=== PATIENT | female | born 1935 | race Caucasian/White ===

== ENCOUNTER 2019-11-19 21:16 | Inpatient (IN) ==
[2019-11-19 23:56] LABS: Adenovirus Not Detected (Not Detect); Bordetella Pertussis Not Detected (Not Detect); Chlamydophila pneumoniae Not Detected (Not Detect); Coronavirus 229E Not Detected (Not Detect); Coronavirus HKU1 Not Detected (Not Detect); Coronavirus NL63 Not Detected (Not Detect); Coronavirus OC43 Not Detected (Not Detect); Human Metapneumovirus Not Detected (Not Detect); Human Rhinovirus/Enterovirus Not Detected (Not Detect); Influenza A Subtype 2009 H1 Not Detected (Not Detect); Influenza B Not Detected (Not Detect); Mycoplasma pneumoniae Not Detected (Not Detect); Parainfluenza Virus 1 Not Detected (Not Detect); Parainfluenza Virus 2 Not Detected (Not Detect); Parainfluenza Virus 3 Not Detected (Not Detect); Parainfluenza Virus 4 Not Detected (Not Detect); Respiratory Syncytial Virus Not Detected (Not Detect)
[2019-11-20] MEDS ORDERED: Naloxone 0.4 MG/ML INJ IVP PRN (00:18)
[2019-11-20] MEDS ORDERED: *HR* Dextrose 50 % in Water (Vial) 50 ML VIAL IVP PRN ×2 (00:28→08:36)
[2019-11-20] MEDS ORDERED: Dextrose Gel 15 GM/37.5 ML TUBE PO PRN ×2 (00:28)
[2019-11-20] MEDS ORDERED: D5% in Water 1,000 ML IVC PRN (00:28)
[2019-11-20 01:13] LABS: Basophils % 0.2 %; Eosinophils # 0.2 K/mcL (0.0-0.6); Eosinophils % 1.4 %; Hemoglobin 9.5 g/dL (11.5-15.4); Immature Granulocytes % 0.9 % (0-4); Lymphocytes # 1.6 K/mcL (0.6-4.6); Lymphocytes % 10.9 %; Mean Corpuscular HGB Conc 32.8 g/dL (31.6-35.5); Mean Corpuscular Hemoglobin 31.5 pg (28.0-33.3); Monocytes # 0.4 K/mcL (0.0-1.3); Neutrophils # 11.9 K/mcL (1.6-8.9); Platelet Count 167 K/mcL (140-400); Red Blood Count 3.02 M/mcL (3.82-4.97); Red Cell Distribution Width 14.2 % (11.5-14.5); Segmented Neutrophils % 83.6 %; White Blood Count 14.2 K/mcL (4.3-11.1)
[2019-11-20 01:22] LABS: INR 1.3; Prothrombin Time 14.9 Seconds (9.4-12.1)
[2019-11-20 01:25] LABS: Activated Partial Thrombo Time 36.1 Seconds (26.0-36.0)
[2019-11-20 01:39] LABS: Magnesium 0.7 mg/dL (1.6-2.6); Troponin I 0.07 ng/mL (< 0.04)
[2019-11-20 01:40] LABS: Albumin 2.8 g/dL (3.5-5.7); Albumin/Globulin Ratio 1.2 (1.1-2.2); Bilirubin,Total 1.6 mg/dL (0.3-1.0); Calcium 5.7 mg/dL (8.6-10.3); Globulin 2.3 g/dL (2.4-3.5); Potassium 2.9 mEq/L (3.5-5.1); Total Protein 5.1 g/dL (6.4-8.9)
[2019-11-20] MEDS: Norepinephrine 4 MG/254 ML IV.SOLN IVC SCH ×2 (01:45→12:59)
[2019-11-20] MEDS ORDERED: Calcium Gluconate 1gm/50mL 1 GM/50 ML BAG IVPB PRN (02:07)
[2019-11-20] MEDS: Calcium Gluconate 1gm/50mL 1 GM/50 ML BAG IVPB SCH ×3 (02:26→03:39)
[2019-11-20] MEDS ORDERED: *HR* Dextrose 50 % in Water (Vial) 50 ML VIAL IVP ONE (02:46)
[2019-11-20] MEDS ORDERED: 0.9 % Sodium Chloride 1,000 ML IV ONE (03:07)
[2019-11-20 03:44] LABS: Thyroid Stimulating Hormone 4.536 mcIU/mL (0.340-5.600)
[2019-11-20 05:41] LABS: Potassium,Urine 12.3 mEq/L; Protein/Creatinine Ratio,Urine 1.06 mg/mg (0.00-0.20); Sodium, Urine 49.7 mEq/L
[2019-11-20] MEDS: *HR* Heparin 5,000 UNIT/ML VIAL SQ SCH ×3 (05:59→21:41)
[2019-11-20 06:33] LABS: VBG Ionized Calcium 0.99 mmol/L (1.15-1.35)
[2019-11-20 07:01] LABS: Hepatitis B Surface Antigen Nonreactive (Nonreactive)
[2019-11-20 07:29] LABS: Hepatitis B Core IgM Nonreactive (Nonreactive)
[2019-11-20 07:30] LABS: Hepatitis C Virus Antibody Nonreactive (Nonreactive)
[2019-11-20 07:31] LABS: Hepatitis A Antibody IgM Nonreactive (Nonreactive)
[2019-11-20] MEDS ORDERED: Cosyntropin 250 MCG/2 ML VIAL IVP ONE (07:32)
[2019-11-20] MEDS ORDERED: Vancomycin 1 EACH in 0.9 % Sodium Chloride 250 ML IVPB PRN (08:00)
[2019-11-20] MEDS ORDERED: Perflutren Lipid Microsphere 1.3 ML in 0.9 % Sodium Chloride 8.7 ML IVP PRN (08:12)
[2019-11-20] MEDS ORDERED: Cefepime HCl 1,000 MG in Water for inj. (sterile) 10 ML IVP SCH (09:00)
[2019-11-20] MEDS ORDERED: cefTRIAXone 1,000 MG in Water for inj. (sterile) 10 ML IVP SCH (09:00)
[2019-11-20] MEDS ORDERED: Vancomycin 1,250 MG/262.5 ML IV.SOLN IVPB ONE (09:00)
[2019-11-20 09:19] LABS: Bacteria,Urine Few per hpf (None-Few); Bilirubin,Urine Negative (Negative); Blood,Urine Small (Negative); Budding Yeast,Urine Few per hpf (None Seen); Clarity,Urine Turbid (Clear); Color,Urine Yellow (Yellow); Glucose,Urine (UA) Normal (Normal); Ketones,Urine Negative (Negative); Leukocyte Esterase,Urine Large (Negative); Nitrite,Urine Negative (Negative); Protein,Urine 30 mg/dL (Neg-Trace); Specific Gravity,Urine 1.012 (1.010-1.025); Squamous Epithelial Cell,Urine Few per hpf (None-Few); Transitional Epi Cells,Urine Few per hpf (None-Few); Urobilinogen,Urine Normal (Normal); WBC,Urine 30-50 per hpf (0-3)
[2019-11-20] MEDS: Hydrocortisone Sodium Succ 100 MG/2 ML VIAL IVP SCH ×3 (10:38→20:28)
[2019-11-20 11:15] LABS: VBG Ionized Calcium 0.98 mmol/L (1.15-1.35)
[2019-11-20 11:30] LABS: Albumin 2.8 g/dL (3.5-5.7); Albumin/Globulin Ratio 1.2 (1.1-2.2); Bilirubin,Total 1.4 mg/dL (0.3-1.0); Calcium 6.7 mg/dL (8.6-10.3); Globulin 2.4 g/dL (2.4-3.5); Potassium 3.3 mEq/L (3.5-5.1); Total Protein 5.2 g/dL (6.4-8.9)
[2019-11-20] MEDS: Potassium Chloride 40 MEQ/200 ML BAG IVPB PRN ×2 (11:54→12:59)
[2019-11-20] MEDS ORDERED: Octreotide Acetate (LAR) 30 MG KIT IM ONE (14:00)
[2019-11-20] MEDS ORDERED: Diphenoxylate/Atropine 1 TAB TABLET PO PRN (14:23)
[2019-11-20] MEDS: *HR* LORazepam 0.5 MG TABLET PO PRN (15:54)
[2019-11-20 19:03] LABS: VBG Ionized Calcium 1.13 mmol/L (1.15-1.35)
[2019-11-20] MEDS: Magnesium Oxide 400 MG TABLET PO SCH (20:27)
[2019-11-21] MEDS: Hydrocortisone Sodium Succ 100 MG/2 ML VIAL IVP SCH ×2 (03:09→07:31)
[2019-11-21 03:43] LABS: Basophils % 0.1 %; Hematocrit 26.5 % (35.3-44.9); Hemoglobin 8.7 g/dL (11.5-15.4); Immature Granulocytes % 0.5 % (0-4); Lymphocytes # 1.2 K/mcL (0.6-4.6); Lymphocytes % 13.3 %; Mean Corpuscular HGB Conc 32.8 g/dL (31.6-35.5); Mean Corpuscular Hemoglobin 31.6 pg (28.0-33.3); Mean Corpuscular Volume 96.4 fL (83.0-100.0); Mean Platelet Volume 11.5 fL (9.4-12.4); Monocytes # 0.3 K/mcL (0.0-1.3); Monocytes % 3.2 %; Neutrophils # 7.5 K/mcL (1.6-8.9); Platelet Count 196 K/mcL (140-400); Red Blood Count 2.75 M/mcL (3.82-4.97); Red Cell Distribution Width 14.2 % (11.5-14.5); Segmented Neutrophils % 82.9 %; White Blood Count 9.1 K/mcL (4.3-11.1)
[2019-11-21 03:46] LABS: VBG Ionized Calcium 1.15 mmol/L (1.15-1.35)
[2019-11-21 04:10] LABS: Albumin 2.8 g/dL (3.5-5.7); Albumin/Globulin Ratio 1.2 (1.1-2.2); Bilirubin,Total 0.8 mg/dL (0.3-1.0); Calcium 7.4 mg/dL (8.6-10.3); Globulin 2.3 g/dL (2.4-3.5); Magnesium 1.8 mg/dL (1.6-2.6); Phosphorous 2.4 mg/dL (2.7-4.5); Potassium 3.4 mEq/L (3.5-5.1); Total Protein 5.1 g/dL (6.4-8.9)
[2019-11-21] MEDS: Potassium Chloride 40 MEQ/200 ML BAG IVPB PRN (05:00)
[2019-11-21] MEDS: *HR* Heparin 5,000 UNIT/ML VIAL SQ SCH ×3 (06:11→21:40)
[2019-11-21] MEDS: *HR* LORazepam 0.5 MG TABLET PO PRN ×3 (06:12→22:30)
[2019-11-21] MEDS: Magnesium Oxide 400 MG TABLET PO SCH ×2 (07:31→21:40)
[2019-11-21] MEDS ORDERED: Loratadine 10 MG TABLET PO SCH (09:00)
[2019-11-21] MEDS ORDERED: predniSONE 20 MG TABLET PO SCH (09:00)
[2019-11-21] MEDS ORDERED: Multivit/Ca/Min/Fe/FA 1 TAB TABLET PO SCH (09:00)
[2019-11-21] MEDS ORDERED: Fluticasone Propionate Nasal 50 MCG/SPRAY BOTTLE NS SCH (09:00)
[2019-11-21] MEDS ORDERED: Cyanocobalamin (B-12) 1,000 MCG TABLET PO SCH (09:00)
[2019-11-21] MEDS ORDERED: Folic Acid 1 MG TABLET PO SCH (09:00)
[2019-11-21] MEDS ORDERED: Naloxone 0.4 MG/ML INJ IVP PRN (09:24)
[2019-11-21] MEDS ORDERED: *HR* Dextrose 50 % in Water (Vial) 50 ML VIAL IVP PRN (09:24)
[2019-11-21] MEDS ORDERED: Dextrose Gel 15 GM/37.5 ML TUBE PO PRN ×2 (09:24)
[2019-11-21] MEDS ORDERED: D5% in Water 1,000 ML IVC PRN (09:24)
[2019-11-21] MEDS ORDERED: Diphenoxylate/Atropine 1 TAB TABLET PO PRN (09:24)
[2019-11-21 12:26] LABS: Magnesium 1.8 mg/dL (1.6-2.6); Phosphorous 1.9 mg/dL (2.7-4.5); Potassium 2.9 mEq/L (3.5-5.1)
[2019-11-21] MEDS: 0.9 % Sodium Chloride 1,000 ML IVC SCH ×2 (13:07→21:50)
[2019-11-22 02:59] LABS: VBG Ionized Calcium 1.19 mmol/L (1.15-1.35)
[2019-11-22 03:17] LABS: Albumin 2.6 g/dL (3.5-5.7); Albumin/Globulin Ratio 1.2 (1.1-2.2); Bilirubin,Total 0.5 mg/dL (0.3-1.0); Calcium 7.4 mg/dL (8.6-10.3); Globulin 2.1 g/dL (2.4-3.5); Magnesium 1.9 mg/dL (1.6-2.6); Potassium 3.8 mEq/L (3.5-5.1); Total Protein 4.7 g/dL (6.4-8.9)
[2019-11-22] MEDS: *HR* Heparin 5,000 UNIT/ML VIAL SQ SCH (05:44)
[2019-11-22] MEDS: Magnesium Oxide 400 MG TABLET PO SCH (07:58)
[2019-11-22] MEDS: *HR* LORazepam 0.5 MG TABLET PO PRN (08:01)
[2019-11-22] MEDS ORDERED: Cyanocobalamin (B-12) 1,000 MCG TABLET PO SCH (09:00)
[2019-11-22] MEDS ORDERED: Loratadine 10 MG TABLET PO SCH (09:00)
[2019-11-22] MEDS ORDERED: Folic Acid 1 MG TABLET PO SCH (09:00)
[2019-11-22] MEDS ORDERED: Fluticasone Propionate Nasal 50 MCG/SPRAY BOTTLE NS SCH (09:00)
[2019-11-22] MEDS ORDERED: Multivit/Ca/Min/Fe/FA 1 TAB TABLET PO SCH (09:00)
[2019-11-22] MEDS ORDERED: predniSONE 20 MG TABLET PO SCH (09:00)
[2019-11-22 10:54] VITALS: BP 129/64
== END 2019-11-22 13:43 | disposition home health service (06) | DRG 871 ==
LOC: CDU → ICNU 11-20 00:15 → 3ANU 11-21 14:53
PROVIDERS: ADMIT Family Medicine; ATTEND Family Medicine

== ENCOUNTER 2019-12-13 15:01 | Inpatient (IN) ==
[2019-12-13] MEDS ORDERED: 0.9 % Sodium Chloride 1,000 ML IVC ONE ×2 (15:16→17:14)
[2019-12-13 16:02] LABS: Hematocrit 35.3 % (35.3-44.9); Mean Corpuscular HGB Conc 31.2 g/dL (31.6-35.5); Mean Corpuscular Hemoglobin 31.4 pg (28.0-33.3); Mean Corpuscular Volume 100.9 fL (83.0-100.0); Mean Platelet Volume 11.1 fL (9.4-12.4); Platelet Count 121 K/mcL (140-400); Red Cell Distribution Width 13.6 % (11.5-14.5)
[2019-12-13 16:20] LABS: Albumin 3.3 g/dL (3.5-5.7); Albumin/Globulin Ratio 1.4 (1.1-2.2); Bilirubin,Total 1.7 mg/dL (0.3-1.0); Calcium 8.9 mg/dL (8.6-10.3); Globulin 2.4 g/dL (2.4-3.5); Potassium 4.5 mEq/L (3.5-5.1); Total Protein 5.7 g/dL (6.4-8.9)
[2019-12-13 16:28] LABS: Lymphocytes # 0.7 K/mcL (0.6-4.6); Macrocytosis Present (Not Present); Neutrophils # 16.3 K/mcL (1.6-8.9); Platelet Estimate Slight Decrease (Normal); Toxic Granulation Present (Not Present)
[2019-12-13 16:49] LABS: Adenovirus Not Detected (Not Detect); Bordetella Pertussis Not Detected (Not Detect); Chlamydophila pneumoniae Not Detected (Not Detect); Coronavirus 229E Not Detected (Not Detect); Coronavirus HKU1 Not Detected (Not Detect); Coronavirus NL63 Not Detected (Not Detect); Coronavirus OC43 Not Detected (Not Detect); Human Metapneumovirus Not Detected (Not Detect); Human Rhinovirus/Enterovirus Not Detected (Not Detect); Influenza A Subtype 2009 H1 Not Detected (Not Detect); Influenza B Not Detected (Not Detect); Mycoplasma pneumoniae Not Detected (Not Detect); Parainfluenza Virus 1 Not Detected (Not Detect); Parainfluenza Virus 2 Not Detected (Not Detect); Parainfluenza Virus 3 Not Detected (Not Detect); Parainfluenza Virus 4 Not Detected (Not Detect); Respiratory Syncytial Virus Not Detected (Not Detect)
[2019-12-13] MEDS ORDERED: 0.9 % Sodium Chloride 1,000 ML ONE (17:12)
[2019-12-13] MEDS ORDERED: Ondansetron 4 MG/2 ML VIAL IVP PRN (17:19)
[2019-12-13] MEDS ORDERED: Naloxone 0.4 MG/ML INJ IVP PRN (17:19)
[2019-12-13 17:38] LABS: Magnesium 1.1 mg/dL (1.6-2.6); Phosphorous 2.3 mg/dL (2.7-4.5)
[2019-12-13] MEDS: cefTRIAXone 1,000 MG in Water for inj. (sterile) 10 ML IVP SCH (18:23)
[2019-12-13] MEDS: Vancomycin Oral Soln 125 MG/2.5 ML UDC PO SCH ×2 (18:23→20:03)
[2019-12-13] MEDS: 0.9 % Sodium Chloride 1,000 ML IVC SCH (18:24)
[2019-12-13] MEDS: *HR* Heparin 5,000 UNIT/ML VIAL SQ SCH (20:02)
[2019-12-13] MEDS: Magnesium Oxide 400 MG TABLET PO SCH (20:03)
[2019-12-13] MEDS ORDERED: Albumin 25% 25gram/100mL 25 GM/100 ML IV.SOLN IVPB ONE (20:58)
[2019-12-13] MEDS ORDERED: NON-FORMULARY MEDICATION 1 EACH EACH (Nitrofurantoin Macrocrystal [Nitrofurantoin] 100 MG) PO SCH (21:00)
[2019-12-14 00:49] LABS: Amorphous Sediment,Urine Few per hpf (None-Few); Bacteria,Urine Few per hpf (None-Few); Bilirubin,Urine Negative (Negative); Blood,Urine Negative (Negative); Clarity,Urine Turbid (Clear); Color,Urine Yellow (Yellow); Glucose,Urine (UA) Normal (Normal); Granular Casts,Urine Few per lpf (None Seen); Ketones,Urine Negative (Negative); Leukocyte Esterase,Urine Large (Negative); Mucus,Urine Few per lpf (None-Few); Nitrite,Urine Negative (Negative); PH,Urine 5.5 pH Units (5.0-8.0); Protein,Urine Trace mg/dL (Neg-Trace); RBC,Urine 0-3 per hpf (0-3); Specific Gravity,Urine 1.021 (1.010-1.025); Squamous Epithelial Cell,Urine Few per hpf (None-Few); Transitional Epi Cells,Urine Few per hpf (None-Few); Urobilinogen,Urine Normal (Normal); WBC,Urine 50-100 per hpf (0-3)
[2019-12-14] MEDS ORDERED: 0.9 % Sodium Chloride 500 ML IV ONE (01:56)
[2019-12-14] MEDS ORDERED: 0.9 % Sodium Chloride 500 ML ONE (02:04)
[2019-12-14] MEDS: 0.9 % Sodium Chloride 1,000 ML IVC SCH ×3 (03:45→16:23)
[2019-12-14] MEDS: *HR* Heparin 5,000 UNIT/ML VIAL SQ SCH ×2 (05:33→17:14)
[2019-12-14 06:00] LABS: Basophils % 0.1 %; Mean Corpuscular Hemoglobin 31.2 pg (28.0-33.3)
[2019-12-14 06:02] LABS: Eosinophils # 0.2 K/mcL (0.0-0.6); Eosinophils % 1.9 %; Hematocrit 28.4 % (35.3-44.9); Hemoglobin 8.6 g/dL (11.5-15.4); Immature Granulocytes % 0.6 % (0-4); Immature Platelets 4.9 % (1.1-6.1); Lymphocytes # 0.5 K/mcL (0.6-4.6); Mean Corpuscular HGB Conc 30.3 g/dL (31.6-35.5); Mean Corpuscular Volume 102.9 fL (83.0-100.0); Mean Platelet Volume 10.6 fL (9.4-12.4); Monocytes # 0.3 K/mcL (0.0-1.3); Red Blood Count 2.76 M/mcL (3.82-4.97); Red Cell Distribution Width 13.6 % (11.5-14.5); Segmented Neutrophils % 88.4 %
[2019-12-14 06:19] LABS: Platelet Count 81 K/mcL (140-400)
[2019-12-14 06:21] LABS: Albumin 2.9 g/dL (3.5-5.7); Albumin/Globulin Ratio 1.6 (1.1-2.2); Bilirubin,Total 1.7 mg/dL (0.3-1.0); Calcium 7.4 mg/dL (8.6-10.3); Globulin 1.8 g/dL (2.4-3.5); Magnesium 1.1 mg/dL (1.6-2.6); Phosphorous 2.6 mg/dL (2.7-4.5); Platelet Estimate Decreased (Normal); Potassium 4.3 mEq/L (3.5-5.1); Total Protein 4.7 g/dL (6.4-8.9)
[2019-12-14 06:22] LABS: Reactive Lymphocytes Present (Not Present)
[2019-12-14] MEDS: Fluticasone Propionate Nasal 50 MCG/SPRAY BOTTLE NS SCH (07:30)
[2019-12-14] MEDS: Loratadine 10 MG TABLET PO SCH (07:30)
[2019-12-14] MEDS: Vancomycin Oral Soln 125 MG/2.5 ML UDC PO SCH (07:30)
[2019-12-14] MEDS: Multivit/Ca/Min/Fe/FA 1 TAB TABLET PO SCH (07:31)
[2019-12-14] MEDS: Folic Acid 1 MG TABLET PO SCH (07:31)
[2019-12-14] MEDS: cefTRIAXone 1,000 MG in Water for inj. (sterile) 10 ML IVP SCH (07:31)
[2019-12-14] MEDS: Cyanocobalamin (B-12) 1,000 MCG TABLET PO SCH (07:31)
[2019-12-14] MEDS: Magnesium Oxide 400 MG TABLET PO SCH ×2 (07:31→20:36)
[2019-12-14] MEDS ORDERED: cefTRIAXone 1,000 MG in Water for inj. (sterile) 10 ML IVP ONE (08:00)
[2019-12-14] MEDS ORDERED: 0.9 % Sodium Chloride 500 ML IVC ONE (10:30)
[2019-12-14] MEDS: Norepinephrine 4 MG/254 ML IV.SOLN IVC SCH ×2 (12:33→22:18)
[2019-12-14 14:12] LABS: INR 1.2; Prothrombin Time 13.2 Seconds (9.4-12.1)
[2019-12-14 14:15] LABS: Activated Partial Thrombo Time 36.3 Seconds (26.0-36.0)
[2019-12-14 15:05] LABS: Thyroid Stimulating Hormone 2.26 mcIU/mL (0.340-5.600); Uric Acid 6.2 mg/dL (2.3-7.6)
[2019-12-14] MEDS: Cefepime HCl 1,000 MG in Water for inj. (sterile) 10 ML IVP SCH (17:13)
[2019-12-14 19:12] LABS: Sodium, Urine 80.4 mEq/L
[2019-12-15] MEDS: 0.9 % Sodium Chloride 1,000 ML IVC SCH ×2 (03:47→17:33)
[2019-12-15 04:16] LABS: Eosinophils # 0.3 K/mcL (0.0-0.6); Eosinophils % 4.5 %; Hemoglobin 8.4 g/dL (11.5-15.4); Immature Granulocytes % 0.6 % (0-4); Immature Platelets 4.7 % (1.1-6.1); Lymphocytes # 0.9 K/mcL (0.6-4.6); Lymphocytes % 13.7 %; Mean Corpuscular HGB Conc 31.1 g/dL (31.6-35.5); Mean Corpuscular Hemoglobin 31.5 pg (28.0-33.3); Mean Corpuscular Volume 101.1 fL (83.0-100.0); Mean Platelet Volume 11.1 fL (9.4-12.4); Monocytes # 0.3 K/mcL (0.0-1.3); Monocytes % 4.5 %; Neutrophils # 4.8 K/mcL (1.6-8.9); Red Blood Count 2.67 M/mcL (3.82-4.97); Red Cell Distribution Width 13.3 % (11.5-14.5); Segmented Neutrophils % 76.7 %; White Blood Count 6.3 K/mcL (4.3-11.1)
[2019-12-15 04:17] LABS: Platelet Count 82 K/mcL (140-400)
[2019-12-15 04:34] LABS: Calcium 7.2 mg/dL (8.6-10.3); Magnesium 1.4 mg/dL (1.6-2.6); Potassium 3.6 mEq/L (3.5-5.1)
[2019-12-15] MEDS: Acetaminophen 325 MG TABLET PO PRN (05:28)
[2019-12-15] MEDS: Cefepime HCl 1,000 MG in Water for inj. (sterile) 10 ML IVP SCH ×2 (05:28→17:34)
[2019-12-15] MEDS: *HR* Heparin 5,000 UNIT/ML VIAL SQ SCH ×2 (05:28→17:34)
[2019-12-15] MEDS ORDERED: cefTRIAXone 2,000 MG in Water for inj. (sterile) 20 ML IVP SCH (08:00)
[2019-12-15] MEDS: Cyanocobalamin (B-12) 1,000 MCG TABLET PO SCH (09:01)
[2019-12-15] MEDS: Multivit/Ca/Min/Fe/FA 1 TAB TABLET PO SCH (09:01)
[2019-12-15] MEDS: Folic Acid 1 MG TABLET PO SCH (09:01)
[2019-12-15] MEDS: Magnesium Oxide 400 MG TABLET PO SCH ×2 (09:01→21:24)
[2019-12-15] MEDS: Loratadine 10 MG TABLET PO SCH (09:01)
[2019-12-15] MEDS: Fluticasone Propionate Nasal 50 MCG/SPRAY BOTTLE NS SCH (09:03)
[2019-12-15] MEDS: *HR* LORazepam 0.5 MG TABLET PO PRN ×3 (09:12→21:28)
[2019-12-15] MEDS: Lactobacillus 1 EACH CAP.SPRINK PO SCH (11:40)
[2019-12-15 13:52] LABS: Amorphous Sediment,Urine Few per hpf (None-Few); Bacteria,Urine Few per hpf (None-Few); Bilirubin,Urine Negative (Negative); Blood,Urine Trace (Negative); Clarity,Urine Turbid (Clear); Color,Urine Yellow (Yellow); Glucose,Urine (UA) Normal (Normal); Granular Casts,Urine Few per lpf (None Seen); Ketones,Urine Negative (Negative); Leukocyte Esterase,Urine Large (Negative); Mucus,Urine Few per lpf (None-Few); Nitrite,Urine Negative (Negative); Protein,Urine Trace mg/dL (Neg-Trace); Renal Epithelial Cells,Urine Few per hpf (None-Few); Specific Gravity,Urine 1.013 (1.010-1.025); Squamous Epithelial Cell,Urine Few per hpf (None-Few); Transitional Epi Cells,Urine Few per hpf (None-Few); Urobilinogen,Urine Normal (Normal); WBC,Urine 30-50 per hpf (0-3)
[2019-12-15] MEDS: Linezolid 600 MG TABLET PO SCH (21:24)
[2019-12-16 05:13] LABS: Basophils % 0.2 %; Eosinophils % 4.6 %; Hemoglobin 8.8 g/dL (11.5-15.4); Immature Granulocytes % 0.5 % (0-4); Mean Platelet Volume 11.6 fL (9.4-12.4); Red Cell Distribution Width 13.4 % (11.5-14.5)
[2019-12-16 05:15] LABS: Eosinophils # 0.3 K/mcL (0.0-0.6); Hematocrit 27.6 % (35.3-44.9); Immature Platelets 6.4 % (1.1-6.1); Lymphocytes % 15.8 %; Mean Corpuscular HGB Conc 31.9 g/dL (31.6-35.5); Mean Corpuscular Hemoglobin 32.2 pg (28.0-33.3); Mean Corpuscular Volume 101.1 fL (83.0-100.0); Monocytes # 0.4 K/mcL (0.0-1.3); Monocytes % 5.6 %; Neutrophils # 4.8 K/mcL (1.6-8.9); Red Blood Count 2.73 M/mcL (3.82-4.97); Segmented Neutrophils % 73.3 %; White Blood Count 6.6 K/mcL (4.3-11.1)
[2019-12-16 05:16] LABS: Platelet Count 83 K/mcL (140-400)
[2019-12-16 05:32] LABS: Magnesium 1.6 mg/dL (1.6-2.6); Phosphorous 1.5 mg/dL (2.7-4.5)
[2019-12-16 05:33] LABS: Albumin 2.8 g/dL (3.5-5.7); Albumin/Globulin Ratio 1.4 (1.1-2.2); Bilirubin,Total 1.1 mg/dL (0.3-1.0); Potassium 3.8 mEq/L (3.5-5.1); Total Protein 4.8 g/dL (6.4-8.9)
[2019-12-16] MEDS: 0.9 % Sodium Chloride 1,000 ML IVC SCH (05:44)
[2019-12-16] MEDS: Cefepime HCl 1,000 MG in Water for inj. (sterile) 10 ML IVP SCH (05:51)
[2019-12-16] MEDS: *HR* Heparin 5,000 UNIT/ML VIAL SQ SCH ×2 (05:51→17:51)
[2019-12-16] MEDS ORDERED: Ringers Solution, Lactated 1,000 ML IVC SCH (07:45)
[2019-12-16] MEDS: Acetaminophen 325 MG TABLET PO PRN ×2 (07:53→16:10)
[2019-12-16] MEDS: Magnesium Oxide 400 MG TABLET PO SCH ×2 (07:54→20:35)
[2019-12-16] MEDS: Lactobacillus 1 EACH CAP.SPRINK PO SCH (07:54)
[2019-12-16] MEDS: Cyanocobalamin (B-12) 1,000 MCG TABLET PO SCH (07:54)
[2019-12-16] MEDS: Multivit/Ca/Min/Fe/FA 1 TAB TABLET PO SCH (07:54)
[2019-12-16] MEDS: Loratadine 10 MG TABLET PO SCH (07:54)
[2019-12-16] MEDS: *HR* LORazepam 0.5 MG TABLET PO PRN (07:54)
[2019-12-16] MEDS: Linezolid 600 MG TABLET PO SCH (07:54)
[2019-12-16] MEDS: Fluticasone Propionate Nasal 50 MCG/SPRAY BOTTLE NS SCH (08:00)
[2019-12-16] MEDS: Folic Acid 1 MG TABLET PO SCH (08:08)
[2019-12-16] MEDS: Norepinephrine 4 MG/254 ML IV.SOLN IVC SCH (10:11)
[2019-12-16] MEDS ORDERED: Ondansetron 4 MG/2 ML VIAL IVP PRN (11:16)
[2019-12-16] MEDS ORDERED: Diphenoxylate/Atropine 1 TAB TABLET PO PRN (11:16)
[2019-12-16] MEDS ORDERED: Naloxone 0.4 MG/ML INJ IVP PRN (11:16)
[2019-12-16] MEDS: Ringers Solution, Lactated 1,000 ML IVC SCH (16:40)
[2019-12-16] MEDS ORDERED: cefTRIAXone 1,000 MG in Water for inj. (sterile) 10 ML IVP SCH (21:00)
[2019-12-16] MEDS ORDERED: Linezolid 600 MG TABLET PO SCH (21:00)
[2019-12-17 02:07] LABS: Basophils % 0.1 %; Eosinophils # 0.4 K/mcL (0.0-0.6); Eosinophils % 4.7 %; Hematocrit 29.8 % (35.3-44.9); Hemoglobin 9.4 g/dL (11.5-15.4); Immature Granulocytes % 0.6 % (0-4); Lymphocytes # 1.6 K/mcL (0.6-4.6); Lymphocytes % 18.6 %; Mean Corpuscular HGB Conc 31.5 g/dL (31.6-35.5); Mean Corpuscular Hemoglobin 30.9 pg (28.0-33.3); Mean Platelet Volume 10.9 fL (9.4-12.4); Monocytes # 0.5 K/mcL (0.0-1.3); Monocytes % 5.5 %; Platelet Count 112 K/mcL (140-400); Red Blood Count 3.04 M/mcL (3.82-4.97); Red Cell Distribution Width 13.7 % (11.5-14.5); Segmented Neutrophils % 70.5 %; White Blood Count 8.4 K/mcL (4.3-11.1)
[2019-12-17 02:28] LABS: Albumin 2.8 g/dL (3.5-5.7); Albumin/Globulin Ratio 1.3 (1.1-2.2); Bilirubin,Total 0.8 mg/dL (0.3-1.0); Calcium 8.7 mg/dL (8.6-10.3); Globulin 2.2 g/dL (2.4-3.5); Magnesium 1.9 mg/dL (1.6-2.6); Phosphorous 1.7 mg/dL (2.7-4.5); Potassium 4.3 mEq/L (3.5-5.1)
[2019-12-17] MEDS: *HR* Heparin 5,000 UNIT/ML VIAL SQ SCH ×2 (05:55→16:00)
[2019-12-17] MEDS: *HR* LORazepam 0.5 MG TABLET PO PRN (08:53)
[2019-12-17] MEDS: Lactobacillus 1 EACH CAP.SPRINK PO SCH (08:54)
[2019-12-17] MEDS: Multivit/Ca/Min/Fe/FA 1 TAB TABLET PO SCH (08:54)
[2019-12-17] MEDS: Cyanocobalamin (B-12) 1,000 MCG TABLET PO SCH (08:54)
[2019-12-17] MEDS: Magnesium Oxide 400 MG TABLET PO SCH ×2 (08:54→19:28)
[2019-12-17] MEDS: Folic Acid 1 MG TABLET PO SCH (08:54)
[2019-12-17] MEDS: Loratadine 10 MG TABLET PO SCH (08:54)
[2019-12-17] MEDS: Ringers Solution, Lactated 1,000 ML IVC SCH (08:54)
[2019-12-17] MEDS: Fluticasone Propionate Nasal 50 MCG/SPRAY BOTTLE NS SCH (08:55)
[2019-12-17] MEDS ORDERED: MethylPREDNISolone 40 MG/ML VIAL IVP ONE (09:36)
[2019-12-17] MEDS ORDERED: Ertapenem 1,000 MG in 0.9 % Sodium Chloride Mini Bag 100 ML IVPB SCH (15:00)
[2019-12-18 05:05] LABS: Calcium 8.6 mg/dL (8.6-10.3); Magnesium 1.6 mg/dL (1.6-2.6); Phosphorous 2.5 mg/dL (2.7-4.5); Potassium 3.8 mEq/L (3.5-5.1)
[2019-12-18] MEDS: *HR* Heparin 5,000 UNIT/ML VIAL SQ SCH (05:43)
[2019-12-18] MEDS: Folic Acid 1 MG TABLET PO SCH (09:08)
[2019-12-18] MEDS: Lactobacillus 1 EACH CAP.SPRINK PO SCH (09:09)
[2019-12-18] MEDS: Cyanocobalamin (B-12) 1,000 MCG TABLET PO SCH (09:09)
[2019-12-18] MEDS: Multivit/Ca/Min/Fe/FA 1 TAB TABLET PO SCH (09:09)
[2019-12-18] MEDS: Loratadine 10 MG TABLET PO SCH (09:09)
[2019-12-18] MEDS: Magnesium Oxide 400 MG TABLET PO SCH (09:09)
[2019-12-18] MEDS: Fluticasone Propionate Nasal 50 MCG/SPRAY BOTTLE NS SCH (09:15)
[2019-12-18] MEDS: Acetaminophen 325 MG TABLET PO PRN (11:09)
[2019-12-18] MEDS: *HR* LORazepam 0.5 MG TABLET PO PRN ×2 (11:09→16:37)
[2019-12-18 15:09] VITALS: BP 125/65
== END 2019-12-18 17:15 | disposition home health service (06) | DRG 871 ==
LOC: 2ANU 15:01 → EMEROOARM 15:01 → SUATTDRO 17:19 → 2ANU 17:59 → ICNU 12-14 11:21 → 2ANU 12-16 13:50
PROVIDERS: ADMIT Student in an Organized Health Care Education/Training Program; ATTEND Internal Medicine